=== PATIENT | male | born 1950 | race Caucasian/White ===

== ENCOUNTER 2017-11-27 04:19 | Emergency (ER) | payer MEDICARE, OTHER ==
[2017-11-27] MEDS: methylPREDNISolone INJ 125 MG/2 ML VIAL (J2930) IM (06:23)
[2017-11-27] MEDS: diphenhydrAMINE INJ 50MG/ML VIAL (J1200) IM (06:24)
== END 2017-11-27 06:31 | disposition home or self-care (01) ==
LOC: M ED 04:19
DX: S90.562A Insect bite (nonvenomous), left ankle, initial encounter (principal); W57.XXXA Bitten or stung by nonvenomous insect and other nonvenomous arthropods, initial encounter; Y92.89 Other specified places as the place of occurrence of the external cause; I10 Essential (primary) hypertension; E78.5 Hyperlipidemia, unspecified; I48.91 Unspecified atrial fibrillation; Z79.899 Other long term (current) drug therapy; Z79.01 Long term (current) use of anticoagulants; Z88.0 Allergy status to penicillin; Z87.891 Personal history of nicotine dependence
CPT/HCPCS: J1200

== ENCOUNTER → 2023-09-13 | Outpatient (CLI) | payer MEDICARE ==
[~2023-09-13] MED LIST: ATOR1TAB19 PO; CIAL10TA PO; DILT240C42 PO; DORZ10DR10 OS; JANT5TAB PO; LISI20TA35 PO; PRED20TA PO; TRAV04OPD OS; VALA500T5 PO
== END ==
LOC: M RAD 10:40
PROVIDERS: ATTEND Internal Medicine
DX: R06.00 Dyspnea, unspecified (principal)

== ENCOUNTER → 2024-08-23 | Outpatient (CLI) | payer MEDICARE | LOC: M SOG 08:05 | PROVIDERS: ATTEND Physician Assistant | DX: M79.645 Pain in left finger(s) (principal); R93.6 Abnormal findings on diagnostic imaging of limbs ==